=== PATIENT | female | born 1970 | race African-American/Black ===

== ENCOUNTER 2016-12-11 17:33 | Inpatient (IN) | payer BC ==
[2016-12-05 11:33] LABS: BASOPHILS 0.3 %; BASOPHILS ABSOLUTE 0.03 10/3/uL (0.0-0.16); EOSINOPHILS 1.4 %; EOSINOPHILS ABSOLUTE 0.17 10/3/uL (0.0-0.53); HEMATOCRIT 35.1 % (36.0-48.0); IMMATURE GRANULOCYTES 0.3 %; IMMATURE GRANULOCYTES ABSOLUTE 0.04 10/3/uL (0.0-0.11); LYMPHOCYTES 33.5 %; LYMPHOCYTES ABSOLUTE 4.02 10/3/uL (0.67-4.30); MANUAL DIFF NO %; MEAN CORPUS HGB CONC 31.3 g/dL (32.0-36.0); MEAN CORPUSCULAR VOLUME 86.2 fL (80-100); MONOCYTES ABSOLUTE 0.48 10/3/uL (0.21-1.20); NEUTROPHILS 60.5 %; NEUTROPHILS ABSOLUTE 7.25 10/3/uL (2.02-8.40); PLATELET COUNT 335 10/3/uL (150-400); RBC DISTRIBUTION WIDTH 13.6 % (12.0-16.0); RED CELL COUNT 4.07 10/6/uL (4.0-5.6)
[2016-12-05 11:39] LABS: INTERNATIONAL NORMAL RATI 1.1 UNITS (-)
[2016-12-05 11:47] LABS: PROTIME (NOT ORD) 13.6 SEC (12.0-14.5)
[2016-12-05 11:49] LABS: A/G RATIO 0.9 (0.7-1.9); ALBUMIN 3.3 G/DL (3.5-5.0); ALKALINE PHOSPHATASE 118 U/L (45-117); BUN (BLOOD UREA NITROGEN) 10 MG/DL (6-23); CALCIUM, SERUM 8.7 MG/DL (8.5-10.4); CHLORIDE, SERUM 108 MMOL/L (96-112); CO2 (CARBON DIOXIDE) 29 MMOL/L (24-34); CREATININE 0.86 MG/DL (0.55-1.02); GFR AFRICAN AMERICAN 95 ML/MIN (>=60); GFR NON AFRICAN AMERICAN 82 ML/MIN (>=60); GLOBULIN 3.7 G/DL (2.5-4.1); GLUCOSE, SERUM 107 MG/DL (60-99); POTASSIUM, SERUM 4.6 MMOL/L (3.5-5.3); SGOT(AST) 10 U/L (5-40); SGPT(ALT) 13 U/L (5-65); SODIUM, SERUM 141 MMOL/L (135-148); TOTAL BILIRUBIN 0.3 MG/DL (0-1.2)
[2016-12-05 12:14] LABS: ASCORBIC ACID (UR NOT ORDER) NEG (NEG); BILIRUBIN, URINE NEGATIVE (NEG); KETONE, URINE NEGATIVE (NEG); LEUKOCYTE ESTERASE(NOT OR NEG (NEG); WBC (NOT ORDERED) (RFLEX) 1 (0-5)
--- NOTE | ~2016-12-11 | OP ---
Record Of Operation [facility] [address] [place]. 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 PROCEDURE: Left total knee revision arthroplasty. SURGEON: Trish Rodriguez M.D. FILAMENT WELDER: See chart. DESCRIPTION OF PROCEDURE: The patient was taken to the operating room and placed supine on the table in normal fashion without any incident. General anesthetic was induced per the anesthesiologist. The patient was carefully positioned, padded, prepped, and draped in normal sterile fashion. Left lower extremity was exsanguinated and tourniquet inflated to 350. A sharp dissection was made via old incision with electrocautery through the fat. Sharp quad splitting approach was carried out. Benign-appearing fluid was sent for cultures and Gram stain. Components were removed with flexible osteotome. The cement was debrided with osteotome and rongeur. Sequential reamers were used for an 18 in the femur and tibia. Intramedullary guides were used to cut the proximal tibia and distal femur. Ruler was used to verify flexion and extension balance, and I chose 8 mm distal augments on the femur. The remaining cuts were made on the femur. Correcting for a size and rotational discrepancies from previous. There was now excellent medial and lateral balance, and excellent flexion and extension balance and overall limb alignment. The patella was cut with an oscillating saw. Cement debrided. The cement was now more probably sized and centralized with guide used to place 3 drill holes. With the trial patella in place, there was excellent patellar tracking. All surfaces were copiously irrigated with pulsatile lavage and vacuum-mixed cement premixed with antibiotic was pressurized in the tibia. Tibial component was placed, impacted, and excess cement removed. Cement was pressurized in the femur and placed on the posterior runners of the femoral component which was placed, impacted, and excess cement removed. Knee brought out in extension on trial spacer. Cement was pressurized in the patella. Patellar component placed, held with a clamp, and excess cement removed. Once all cement was hardened, knee was taken through range of motion. Further extruded cement was removed with small osteotome. The actual insert was then placed, impacted, and checked to make sure it was sound and snug. The knee was closed in a layered fashion over a medium ConstaVac drain superolaterally. Wound was dressed sterilely. The patient was awakened and taken to the postanesthesia care unit without incident. COMPLICATIONS: None. SPECIMENS REMOVED: Components and cultures. ESTIMATED BLOOD LOSS: Trace. Record Of Operation [address] [address] NAME: RIO ESCUDERO : 72 STATUS : ADM IN [facility]#: [id number] AGE: 46 ADM/REG DATE : 12/11/16 MR#: [id number] REPORT SERV DATE: 12/11/16 DICTATED BY: GLENN RODRIGUEZ DATE: 12/11/16 REPORT STATUS : Draft TRANSCRIBED BY: MARILU DATE: 12/11/16 WTB/MARILU Trish Rodriguez M.D. / [id number] CC: Trish Rodriguez M.D.
[~2016-12-11 17:33] MED LIST: AMBIEN CR12.5 MG PO; C5 PO; GLUCPH PO; HYGROTON 25 MG25 MG PO; METHOC500B PO; NEUR300 PO; OXYCOD PO; PCET PO; PRAVACHOL40 MG PO; PRINZIDE1 TA1 PO; ROXICODONE30 MG PO
[2016-12-12 05:37] LABS: HEMOGLOBIN 9.9 g/dL (12.0-16.0); INTERNATIONAL NORMAL RATI 1.2 UNITS (-); PROTIME (NOT ORD) 15.1 SEC (12.0-14.5)
[2016-12-12 05:44] LABS: BUN (BLOOD UREA NITROGEN) 10 MG/DL (6-23); CALCIUM, SERUM 8.4 MG/DL (8.5-10.4); CHLORIDE, SERUM 103 MMOL/L (96-112); CO2 (CARBON DIOXIDE) 28 MMOL/L (24-34); GFR AFRICAN AMERICAN 103 ML/MIN (>=60); GFR NON AFRICAN AMERICAN 89 ML/MIN (>=60); GLUCOSE, SERUM 119 MG/DL (60-99); POTASSIUM, SERUM 4.4 MMOL/L (3.5-5.3); SODIUM, SERUM 139 MMOL/L (135-148)
[2016-12-13 06:28] LABS: INTERNATIONAL NORMAL RATI 1.2 UNITS (-); PROTIME (NOT ORD) 15.3 SEC (12.0-14.5)
[2016-12-13 06:41] LABS: CALCIUM, SERUM 8.5 MG/DL (8.5-10.4); CHLORIDE, SERUM 101 MMOL/L (96-112); CO2 (CARBON DIOXIDE) 28 MMOL/L (24-34); GFR AFRICAN AMERICAN 70 ML/MIN (>=60); GFR NON AFRICAN AMERICAN 61 ML/MIN (>=60); GLUCOSE, SERUM 112 MG/DL (60-99); POTASSIUM, SERUM 4.2 MMOL/L (3.5-5.3); SODIUM, SERUM 137 MMOL/L (135-148)
[2016-12-13 06:44] LABS: BUN (BLOOD UREA NITROGEN) 18 MG/DL (6-23)
[2016-12-13 06:52] LABS: HEMOGLOBIN 9.8 g/dL (12.0-16.0)
[2016-12-13] MEDS ORDERED: C5 PO (08:54)
== END 2016-12-13 11:54 | disposition home or self-care (01) | DRG 467 ==
LOC: 3JRC 17:33
PROVIDERS: Nurse Practitioner Acute Care; Specialist
PROC: 0SWD0JZ Revision of Synthetic Substitute in Left Knee Joint, Open Approach (ICD-10-PCS; principal; 2016-12-11 13:00)
DX: T84.033A Mechanical loosening of internal left knee prosthetic joint, initial encounter (principal); Z68.42 Body mass index [BMI] 45.0-49.9, adult; E11.40 Type 2 diabetes mellitus with diabetic neuropathy, unspecified; E66.01 Morbid (severe) obesity due to excess calories; D62 Acute posthemorrhagic anemia; F17.210 Nicotine dependence, cigarettes, uncomplicated; I10 Essential (primary) hypertension; G89.29 Other chronic pain; F11.90 Opioid use, unspecified, uncomplicated; Z79.899 Other long term (current) drug therapy; Z79.84 Long term (current) use of oral hypoglycemic drugs
CPT/HCPCS: 36415; 71010; 80048; 80053; 81001; 82962; 84703; 85014; 85018; 85025; 85610; 86850; 86900; 86901; 87015; 87070; 87075; 87102; 87116; 87205; 87641; 88300; 88304; 88311; 93005; 97110-GP; 97116-GP; 97150-GP; 97161-GP; 97166-GO; A9270-GY; C1776; J0690; J1170; J1885; J2175; J2250; J2270; J2274; J2405; J2550; J2710; J2795; J3010